=== PATIENT | female | born 1960 | race Caucasian/White ===

== ENCOUNTER → 2016-03-30 | Outpatient (CLI) | payer BC ==
--- NOTE | 2016-03-30 09:07 | DIAGNOSTIC IMAGING REPORT ---
CHEST 2 VIEWS ROUTINE CLINICAL HISTORY: Atypical chest pain COMPARISON STUDY: No previous studies for comparison. FINDINGS: The cardiac and mediastinal contours are normal. There is no evidence of focal pulmonary consolidation. There is no evidence of failure. No pleural effusions are visualized.[ There is a pectus excavatum deformity IMPRESSION: No active disease in the chest. Electronically signed by: Zan Singh M.D. 03/30/2016 9:06 AM Dictated Date/Time: 03/30/2016 9:05 AM
--- NOTE | 2016-03-30 09:13 | DIAGNOSTIC IMAGING REPORT ---
ABDOMEN COMPLETE (US) CLINICAL HISTORY: Abdominal pain. COMPARISON STUDY: No previous studies for comparison. FINDINGS: Liver morphology is normal. There is no biliary ductal dilatation. The common bile duct measures 6 mm in caliber. There are multiple small stones within the gallbladder. There is no gallbladder wall thickening or pericholecystic fluid. The pancreas is sonographically normal. The head and tail are slightly obscured. The size of the spleen is normal. The right kidney measures 9.6 x 3.8 x 5.3 cm and the left measures 9.5 x 5.8 x 6.1 cm. There is no hydronephrosis. Renal echogenicity, size and cortical thickness are normal. The caliber of the abdominal aorta is normal. IMPRESSION: 1. Cholelithiasis. No gallbladder wall thickening. 2. No biliary ductal dilatation. 3. No hydronephrosis. Electronically signed by: Austen Roberto M.D. 03/30/2016 9:12 AM Dictated Date/Time: 03/30/2016 9:08 AM
== END | disposition home or self-care (01) ==
LOC: C.ULTRBC 08:22
PROVIDERS: ATTEND Internal Medicine
DX: K80.20 Calculus of gallbladder without cholecystitis without obstruction (principal); R07.9 Chest pain, unspecified

== ENCOUNTER → 2016-05-20 | Outpatient (CLI) | payer BC ==
--- NOTE | 2016-05-20 16:57 | MAMMOGRAPHY REPORT ---
BILATERAL DIGITAL SCREENING MAMMOGRAM TOMOSYNTHESIS WITH CAD: 05/20/2016 CLINICAL HISTORY: Routine screening examination. TECHNIQUE: Breast tomosynthesis in addition to standard 2D mammography was performed. Current study was also evaluated with a Computer Aided Detection (CAD) system. COMPARISON: Comparison is made to exams dated: 05/14/2015 mammogram, 05/10/2014 mammogram, 03/15/2012 sobeida mogram, 02/27/2011 mammogram, 02/26/2010 mammogram, and 02/25/2009 mammogram - [facility]ter. BREAST COMPOSITION: There are scattered areas of fibroglandular density in both breasts. FINDINGS: An asymmetry in the upper inner anterior left breast appears similar on all available prio r mammograms dating back to at least 02/23/2008, therefore likely benign. No new suspicious mass, ar chitectural distortion or cluster of microcalcifications is seen. IMPRESSION: ACR BI-RADS CATEGORY 2: BENIGN There is no mammographic evidence of malignancy. A 1 year screening mammogram is recommended. The p atient will receive written notification of the results. Approximately 10% of breast cancers are not detected with mammography. A negative mammographic repor t should not delay biopsy if a clinically suggestive mass is present. Anel Arredondo M.D. ay/:05/20/2016 16:22:32 Vacuum Extractor Operator: Tonja PALACIOS(R)(M), [facility] letter sent: Normal 1/2 BI-RADS Code: ACR BI-RADS Category 2: Benign
== END | disposition home or self-care (01) ==
LOC: C.MAMM 09:05
PROVIDERS: ATTEND Obstetrics & Gynecology
DX: Z12.31 Encounter for screening mammogram for malignant neoplasm of breast (principal)

== ENCOUNTER → 2016-05-22 | Outpatient (CLI) | payer BC ==
--- NOTE | 2016-05-22 10:48 | DIAGNOSTIC IMAGING REPORT ---
LUMBAR SPINE 5 VIEWS HISTORY: Pain PAIN IN RIGHT HIP COMPARISON: None. FINDINGS: There is no fracture. Moderate scoliosis. Vertebral body stature is unremarkable. Moderate degenerative disc change most prominent at L5-S1 and to lesser extent from L2 through L4. IMPRESSION: Mild scoliosis. Rather significant degenerative disc change L5-S1 Electronically signed by: Alec Bell M.D. 05/22/2016 10:45 AM Dictated Date/Time: 05/22/2016 10:45 AM
--- NOTE | 2016-05-22 10:49 | DIAGNOSTIC IMAGING REPORT ---
RIGHT HIP UNILATERAL 2 VIEWS CLINICAL HISTORY: PAIN IN RIGHT HIP Right pain COMPARISON: None. DISCUSSION: Mild degenerative narrowing right hip joint space. Minimal calcific trochanteric bursitis. No evidence for acetabular protrusion. Moderate osteophytic reaction lateral aspect iliac weighing. There is no evidence for soft tissue swelling. IMPRESSION: Mild degenerative change. Minimal calcific trochanteric bursitis. Electronically signed by: Alec Bell M.D. 05/22/2016 10:46 AM Dictated Date/Time: 05/22/2016 10:46 AM
== END | disposition home or self-care (01) ==
LOC: C.RAD1850 10:28
PROVIDERS: ATTEND Family Medicine
DX: M54.9 Dorsalgia, unspecified (principal); M25.551 Pain in right hip

== ENCOUNTER → 2016-09-09 | Outpatient (CLI) | payer BC ==
--- NOTE | 2016-09-09 13:03 | DIAGNOSTIC IMAGING REPORT ---
MRI OF THE LUMBAR SPINE WITHOUT IV CONTRAST CLINICAL HISTORY: Low back pain. Right hip pain. COMPARISON STUDY: Radiographs of the lumbar spine dated 05/22/2016. TECHNIQUE: MRI of the lumbar spine is performed utilizing various T1 and T2-weighted sequences in the axial and sagittal planes. IV contrast was not administered for this examination. FINDINGS: Lumbar spine: Vertebral body height and alignment are maintained throughout the lumbar spine. Nonspecific marrow edema is seen within the right pedicles of L3 and L4. This is best seen on sagittal STIR image number 5. The transverse and spinous processes appear intact. No destructive bony lesion is seen. Mild degenerative endplate edema is noted at L3-L4 and L5-S1. Intervertebral discs: There is degenerative disc desiccation seen throughout the lumbar spine. There is mild loss of height at L2-L3. Moderate loss of height is seen from L3-L4 through L5-S1. Spinal cord: The visualized spinal cord is normal in morphology and signal intensity. The conus medullaris terminates at the L1-L2 interspace. The nerve roots of the cauda equina are normal in morphology. L1-L2: Unremarkable. L2-L3: There is minimal posterior disc bulge. The central canal and neural foramina are patent. Mild facet arthropathy is of no consequence. L3-L4: There is posterior disc bulge. In conjunction with hypertrophy of the ligamentum flavum, this causes mild to moderate central canal stenosis. The minimum AP diameter measures 6.5 mm. There is mild bilateral subarticular stenosis. Facet arthropathy causes mild right neural foraminal narrowing. The disc bulge abuts the transiting bilateral nerve roots. L4-L5: There is a large posterior disc bulge with annular fissure. In conjunction with hypertrophy of the ligamentum flavum, this causes mild to moderate central canal stenosis with a minimum AP diameter of 7.5 mm. There is bilateral subarticular stenosis. Facet arthropathy is of no consequence. The neural foramina are patent. The disc bulge abuts the transiting bilateral nerve roots. L5-S1: There is a small posterior disc bulge. The central canal is clear. Facet arthropathy causes mild, right greater than left, neural foraminal stenosis. Sacrum: The visualized sacrum is normal in morphology and signal intensity. A small hemangioma is suggested in the left sacrum. Soft tissues: The paraspinous soft tissues are within normal limits. The partially imaged retroperitoneal structures are grossly unremarkable but incompletely assessed. A cystic structure in the right adnexa is partially imaged and likely represents a dominant ovarian follicle. This measures up to 4.3 cm. The uterus appears heterogeneous, possibly related to fibroids. IMPRESSION: 1. Lumbosacral spondylosis as above with mild to moderate acquired compromise of the central canal at L3-L4 and L4-L5. See discussion for detailed [id number] analysis. 2. There is mild and nonspecific marrow edema seen within the right pedicles of L3 and L4. This is of indeterminant etiology and may be on a degenerative or stress-related basis. 3. There is a 4.3 cm cystic structure in the right adnexa, likely related to the right ovary. The uterus appears heterogeneous, possibly related to fibroids. If clinically warranted these findings could be further assessed with a pelvic ultrasound. Dictated: 09/09/2016 12:49 PM Transcribed: 09/09/2016 1:03 PM [email or web address] Electronically signed by: Mendoza Gregory M.D. 09/09/2016 1:09 PM Dictated Date/Time: 09/09/2016 12:49 PM
== END | disposition home or self-care (01) ==
LOC: C.MRIBC 11:08
PROVIDERS: ATTEND Orthopaedic Surgery Orthopaedic Surgery of the Spine
DX: M47.817 Spondylosis without myelopathy or radiculopathy, lumbosacral region (principal); N83.8 Other noninflammatory disorders of ovary, fallopian tube and broad ligament

== ENCOUNTER → 2017-05-25 | Outpatient (CLI) | payer OTHER ==
--- NOTE | 2017-05-26 07:50 | MAMMOGRAPHY REPORT ---
BILATERAL DIGITAL SCREENING MAMMOGRAM TOMOSYNTHESIS WITH CAD: 05/25/2017 CLINICAL HISTORY: Routine screening. Patient has no complaints. TECHNIQUE: Breast tomosynthesis in addition to standard 2D mammography was performed. Current study was also evaluated with a Computer Aided Detection (CAD) system. COMPARISON: Comparison is made to exams dated: 05/20/2016 mammogram, 05/14/2015 mammogram, 05/10/2014 sobeida mogram, 05/30/2012 mammogram, 03/15/2012 mammogram, and 02/27/2011 mammogram - [facility] er. BREAST COMPOSITION: There are scattered areas of fibroglandular density in both breasts. FINDINGS: There is a focal asymmetry in the upper innermiddle to anterior left breast that is stable on all available prior mammograms dating back to at least 02/23/2008, therefore likely benign. No carter spicious mass, architectural distortion or cluster of microcalcifications is seen. IMPRESSION: ACR BI-RADS CATEGORY 2: BENIGN There is no mammographic evidence of malignancy. A 1 year screening mammogram is recommended. The pa tient will receive written notification of the results. Approximately 10% of breast cancers are not detected with mammography. A negative mammographic report should not delay biopsy if a clinically suggestive mass is present. Anel Arredondo M.D. ay/:05/25/2017 09:03:11 Hull Builder: Jasmin PALACIOS(Dominique)(M)(BD), [facility] letter sent: Normal 1/2 BI-RADS Code: ACR BI-RADS Category 2: Benign
== END | disposition home or self-care (01) ==
LOC: C.MAMM 08:06
PROVIDERS: ATTEND Obstetrics & Gynecology
DX: Z12.31 Encounter for screening mammogram for malignant neoplasm of breast (principal)